=== PATIENT | female | born 1945 | race Caucasian/White ===

== ENCOUNTER 2016-03-27 08:20 | Emergency (ER) | payer MEDICARE, OTHER ==
[~2016-03-27] VITALS: Ht 160 cm; Wt 72.6 kg
[~2016-03-27 08:20] MED LIST: ASP81TEC PO; ATOR40TA PO; CAL PO; CALCIUM; FEXO1TAB PO; MAG; MAG PO; OMEG1CAP24 PO; VITAMINE C PO; VITD PO; ZINC; ZINC PO; [UNRECOGNIZED DRUG - OTHER]; [UNRECOGNIZED DRUG - OTHER] PO; vitamine D PO
[2016-03-27] MEDS ORDERED: OMEP20CA12 (08:56)
[2016-03-27] MEDS ORDERED: MONT10TA24 (08:56)
[2016-03-27] MEDS ORDERED: LISI-556 (08:56)
--- NOTE | 2016-03-27 09:03 | ED Fall/Injury ---
General Chief Complaint: Trauma-Non Activation Stated Complaint: FALL/FACIAL LAC Nursing Triage Note: FALL AT HOME, SEE TRAUMA ASSESSMENT Source: patient Exam Limitations: no limitations History of Present Illness Time seen by provider: 08:59 Initial Comments 71 yowf fell last nit p hot bath at home striking rt forehead. She has done this before where she gets out of hot tub and feels weak and will fall. May have had syncopal episode. No neck pain, paraesthesias, or weakness. No chest pain, fever, chill, SOB, N or V. PMH hypertension asthma and elevated cholesterol. Location Injury Occurred: AT HOME Allergies and Home Medications Allergies Uncoded Allergies: PCN (Allergy, Unknown, RASH, 09/11/10) Home Medications 1 PO DAILY (Reported) 1 PO (Reported) 1 PO DAILY (Reported) 1 PO DAILY (Reported) Aspirin 81 Mg Tabec 81 MG PO DAILY (Reported) Atorvastatin Calcium 40 Mg Tablet 1 EACH PO DAILY (Reported) Fexofenadine/Pseudoephedrine 1 Each Tab.er.24h 1 EACH PO PRN (Reported) Lisinopril 5 Mg Tablet #90 (Reported) Montelukast Sodium 10 Mg Tablet #90 (Reported) [place]-3 Fatty Acids/Fish Oil 1 Each Capsule.dr 1 EACH PO (Reported) Omeprazole 20 Mg Capsule.dr #90 (Reported) Constitutional: No chills, No fever, weakness Eyes: Denies Blurred Vision Ears, Nose, Mouth, Throat: denies ear pain Respiratory: No cough Cardiovascular: No chest pain Gastrointestinal: No abdominal pain, No diarrhea, No nausea Genitourinary: no symptoms reported Musculoskeletal: no symptoms reported Skin: see HPI other (there is a 5 cm stellate laceration in the medial aspect of the right eyebrow.) Psychiatric/Neurological: No Symptoms Reported Past Ihubpaq-Wlmkdd-Syletx Hx Patient Social History Alcohol Use: Denies Use Recreational Drug Use: No Smoking Status: Never a Smoker Recent Foreign Travel: No Contact w/Someone Who Travel: No Recent Infectious Disease Expo: No Recent Hopitalizations: No Immunizations Up To Date Date of Influenza Vaccine: Nov 30, 2011 Surgeries HX Surgeries: Yes Surgeries: Adenoidectomy, Hysterectomy, Tonsillectomy Respiratory Hx Respiratory Disorders: No Cardiovascular Hx Cardiac Disorders: Yes Cardiac Disorders: High Cholesterol, Hypertension Neurological Hx Neurological Disorders: No Reproductive System Hx Reproductive Disorders: No Genitourinary Hx Genitourinary Disorders: No Gastrointestinal Hx Gastrointestinal Disorders: No Musculoskeletal Hx Musculoskeletal Disorders: No Endocrine Hx Endocrine Disorders: No HEENT HX ENT Disorders: No Cancer Hx Cancer: No Psychosocial Hx Psychiatric Problems: No Reviewed Nursing Assessment Reviewed/Agree w Nursing PMH: Yes Physical Exam Vital Signs Vital Sign - Last 12Hours 03/27/16 08:43 Temp 98.3 Pulse 80 Resp 18 B/P 148/73 Pulse Ox 95 O2 Delivery Room Air Capillary Refill : Less Than 3 Seconds General Appearance: WD/WN no apparent distress HEENT: other Neck: supple Cardiovascular: regular rate, rhythm Respiratory: lungs clear Gastrointestinal: normal bowel sounds non tender soft Back: normal inspection Extremities: normal range of motion non-tender Neurologic/Psychiatric: no motor/sensory deficits alert normal mood/affect Skin: other (there is a 5 cm stellate laceration medial third of the right eyebrow.) Progress/Results/Core Measures Results/Orders Lab Results Laboratory Tests Test 03/27/16 09:23 Range/Units Alanine Aminotransferase (ALT/SGPT) 20 0-55 U/L Albumin 4.1 3.2-4.5 G/DL Alkaline Phosphatase 67 40-136 U/L Anion Gap 12 5-14 MMOL/L Aspartate Amino Transf (AST/SGOT) 17 5-34 U/L BUN/Creatinine Ratio 17 Basophils # (Auto) 0.0 0.0-0.1 10^3/uL Basophils (%) (Auto) 0 0-10 % Blood Urea Nitrogen 14 7-18 MG/DL Calcium Level 9.2 8.5-10.1 MG/DL Carbon Dioxide Level 23 21-32 MMOL/L Chloride Level 108 H 98-107 MMOL/L Creatinine 0.84 0.60-1.30 MG/DL Eosinophils # (Auto) 0.1 0.0-0.3 10^3/uL Eosinophils (%) (Auto) 1 0-10 % Estimat Glomerular Filtration Rate > 60 Glucose Level 91 70-105 MG/DL Hematocrit 38 35-52 % Hemoglobin 12.8 11.5-16.0 G/DL Lymphocytes # (Auto) 2.3 1.0-4.0 X 10^3 Lymphocytes (%) (Auto) 32 12-44 % Mean Corpuscular Hemoglobin 31 25-34 PG Mean Corpuscular Hemoglobin Concent 34 32-36 G/DL Mean Corpuscular Volume 90 80-99 FL Mean Platelet Volume 10.3 7.4-10.4 FL Monocytes # (Auto) 0.5 0.0-1.0 X 10^3 Monocytes (%) (Auto) 8 0-12 % Neutrophils # (Auto) 4.2 1.8-7.8 X 10^3 Neutrophils (%) (Auto) 59 42-75 % Platelet Count 257 130-400 10^3/uL Potassium Level 3.9 3.6-5.0 MMOL/L Red Blood Count 4.20 L 4.35-5.85 10^6/uL Red Cell Distribution Width 13.6 10.0-14.5 % Sodium Level 143 135-145 MMOL/L Total Bilirubin 0.6 0.1-1.0 MG/DL Total Protein 6.5 6.4-8.2 G/DL Troponin I < 0.30 <0.30 NG/ML White Blood Count 7.1 4.3-11.0 10^3/uL My Orders Orders-ISABEL HUNT MD Ct Head Wo (03/27/16 08:57) Cbc With Automated Diff (03/27/16 08:57) Comprehensive Metabolic Panel (03/27/16 08:57) Ekg Tracing (03/27/16 08:57) Troponin I (03/27/16 08:57) Ua Culture If Indicated (03/27/16 08:57) Chest 1 View, Ap/Pa Only (03/27/16 08:57) Dipht,Pertuss(Acell),Tet Adult (Boostrix (03/27/16 11:00) Dipht,Pertuss(Acell),Tet Adult (Boostrix (03/27/16 10:53) Vital Signs/I&O Vital Sign - Last 12Hours 03/27/16 08:43 Temp 98.3 Pulse 80 Resp 18 B/P 148/73 Pulse Ox 95 O2 Delivery Room Air Blood Pressure Mean: 98 Progress Note : Time: 11:06 Progress Note Patient's laboratory evaluation, CT of the head, an EKG failed to demonstrate evidence of acute pathology. Under usual sterile conditions using 1 percent plain lidocaine for local anesthesia the laceration was copiously cleaned and irrigated and repaired in an interrupted fashion applying 6-0 nylon. Approximately 6 interrupted sutures were used for closure. Departure Impression Impression: Primary Impression: Syncopal episodes Qualified Code: R55 - Syncope and collapse Additional Impressions: Closed head injury Qualified Code: S09.90XA - Unspecified injury of head, initial encounter Forehead laceration Qualified Code: S01.81XA - Laceration without foreign body of other part of head, initial encounter Disposition: 01 HOME, SELF-CARE Condition: Improved Departure-Patient Inst. Decision time for Depature: 11:08 Referrals: CHENTE ARAIZA MD (PCP/Family) Primary Care Physician Patient Instructions: Syncope (Fainting) (DC) Add. Discharge Instructions: Sutures out in approximately 5 days. Watch for signs of infection. Follow head injury instructions. Return if any problems or questions. Tylenol and/or ibuprofen for pain. All discharge instructions reviewed with patient and/or family. Voiced understanding. ISABEL HUNT MD Mar 27, 2016 09:03
[2016-03-27 09:29] LABS: BASOPHILS % (AUTO) 0 % (0-10); EOSINOPHILS # (AUTO) 0.1 10^3/uL (0.0-0.3); EOSINOPHILS % (AUTO) 1 % (0-10); LYMPHOCYTES # (AUTO) 2.3 X 10^3 (1.0-4.0); LYMPHOCYTES % (AUTO) 32 % (12-44); MEAN CORPUSCULAR HEMOGLOBIN 31 PG (25-34); MEAN CORPUSCULAR HGB CONC 34 G/DL (32-36); MEAN CORPUSCULAR VOLUME 90 FL (80-99); MEAN PLATELET VOLUME 10.3 FL (7.4-10.4); MONOCYTES # (AUTO) 0.5 X 10^3 (0.0-1.0); MONOCYTES % (AUTO) 8 % (0-12); NEUTROPHILS # (AUTO) 4.2 X 10^3 (1.8-7.8); NEUTROPHILS % (AUTO) 59 % (42-75); PLATELET COUNT 257 10^3/uL (130-400); RED CELL DISTRIBUTION WIDTH 13.6 % (10.0-14.5); WHITE BLOOD COUNT 7.1 10^3/uL (4.3-11.0)
--- NOTE | 2016-03-27 09:42 | Diagnostic Imaging Report ---
CLINICAL INDICATION: Patient fell at home. Patient has swelling and bruising above the right orbital rim. EXAM: Axial CT scan of the brain performed without IV contrast. COMPARISON: None. FINDINGS: There is no evidence of acute cerebral infarct, intracranial hemorrhage, or gross mass effect. There is normal brink-white matter distinction. The brain parenchymal volume appears appropriate for patient's age. There is no significant midline shift or herniation. There is no evidence of hydrocephalus. The basal cisterns are unremarkable. There is a minimal area of extracranial soft tissue swelling in the right frontal/superior periorbital region. There is no skull fracture. Otherwise, the skull, extracranial soft tissue, and orbits are unremarkable. The paranasal sinuses are unremarkable. IMPRESSION: 1: There is no evidence of acute intracranial process. 2: Minimal-sized area of extracranial soft tissue swelling in the right frontal/superior periorbital region. There is no skull fracture. Dictated by: Dictated on workstation # [id number]
--- NOTE | 2016-03-27 09:47 | Diagnostic Imaging Report ---
Clinical indication: Patient fell at home. Exam: Portable chest x-ray upright view. Comparisons: Chest x-ray dated 08/18/2010. Findings: Lungs/pleura: Lungs are clear. There is no pneumothorax. There is no pleural effusion. Mediastinum: Unremarkable. Pulmonary vasculature: Unremarkable. Heart: Unremarkable. Bones/extrathoracic soft tissue: Unremarkable. Impression: There is no radiographic evidence of acute cardiopulmonary process. Dictated by: Dictated on workstation # [id number]
[2016-03-27 09:49] LABS: ALANINE AMINOTRANSFERASE 20 U/L (0-55); ALBUMIN 4.1 G/DL (3.2-4.5); ANION GAP 12 MMOL/L (5-14); ASPARTATE AMINO TRANSFERASE 17 U/L (5-34); BILIRUBIN,TOTAL 0.6 MG/DL (0.1-1.0); BLOOD UREA NITROGEN 14 MG/DL (7-18); BUN/CREATININE RATIO 17; CALCIUM 9.2 MG/DL (8.5-10.1); CARBON DIOXIDE 23 MMOL/L (21-32); CHLORIDE 108 MMOL/L (98-107); CREATININE SERUM 0.84 MG/DL (0.60-1.30); GFR ESTIMATED > 60; GLUCOSE 91 MG/DL (70-105); POTASSIUM 3.9 MMOL/L (3.6-5.0); SODIUM 143 MMOL/L (135-145); TOTAL PROTEIN 6.5 G/DL (6.4-8.2)
[2016-03-27 09:55] LABS: TROPONIN I < 0.30 NG/ML (<0.30)
[2016-03-27] MEDS ORDERED: TETANUS,DIPTH,PERTUSS P/F (BOOSTRIX) 0.5 ML VIAL IM ONE ×2 (10:53→11:00)
[2016-03-27 11:12] VITALS: BP 131/77
== END 2016-03-27 11:12 | disposition home or self-care (01) ==
LOC: EDUNIT# 08:20 → ER 08:21
DX: S01.81XA Laceration without foreign body of other part of head, initial encounter (principal); R55 Syncope and collapse; Z23 Encounter for immunization; I10 Essential (primary) hypertension; Z79.899 Other long term (current) drug therapy; Z79.82 Long term (current) use of aspirin; W16.212A Fall in (into) filled bathtub causing other injury, initial encounter; Y92.012 Bathroom of single-family (private) house as the place of occurrence of the external cause; Y93.E1 Activity, personal bathing and showering; Y99.8 Other external cause status
CPT/HCPCS: 36415; 70450; 71010; 80053; 84484; 85027; 90471; 90715; 93005

== ENCOUNTER 2016-04-01 07:47 | Emergency (ER) | payer MEDICARE, OTHER ==
[~2016-04-01] VITALS: Ht 160 cm; Wt 79.4 kg
--- OUTSIDE RECORDS SUMMARY | 2016-04-01 07:55 | XMS REPORT | Continuity of Care Document ---
Author Author [facility] Organization [facility] Address Unknown Phone Unavailable Care Team Providers Care Handkerchief Sample Clerk Name Role Phone CHENTE ARAIZA MD PCP Insurance Providers Payer Name Policy Number Subscriber Name Relationship [employer] Gold Choice [id number] Cristina Mcmahon 20 Self / Same As Patient Advance Directives Directive Response Recorded Date/Time Advance Directives No 03/27/16 8:43am Health Care Power of Ultrasound Technologist No 03/27/16 8:43am Organ Donor Yes 03/27/16 8:43am Resuscitation Status Full Code 03/27/16 8:43am Chief Complaint and Reason for Visit Chief Complaint Trauma-Non Activation Reason for Visit [id number] Closed head injury Syncopal episodes Problems Active Problems Medical Problem Onset Date Status Closed head injury Unknown Acute Forehead laceration Unknown Acute Syncopal episodes Unknown Acute Medications Current Home Medications Medication Dose Units Route Directions Days/Qty Instructions Start Date Aspirin 81 Mg 81 Mg Oral Daily 10/02/12 Atorvastatin Calcium 40 Mg 1 Each Oral Daily 10/02/12 [place]-3 Fatty Acids/Fish Oil 1 Each 1 Each [...] - 99.5) 03/27/2016 8:43am Temperature (Calculated Celsius) 36.24926 degrees C (36.4 - 37.5) 03/27/2016 8:43am [...] 3 inches 03/27/2016 8:43am Height (Calculated Centimeters) 160.858160 cm 03/27/2016 8:43am Weight (Pounds) 160 pounds 03/27/2016 8:43am Weight (Calculated Kilograms) 72.604861 kilograms 03/27/2016 8:43am Capillary Refill Capillary Refill [...] Date Attending Provider Departed Emergency Room [facility] 03/27/16 8:21am 03/27 11:12am ISABEL HUNT MD Recent Diagnosis
[2016-04-01 08:12] VITALS: BP 122/74
== END 2016-04-01 08:12 | disposition home or self-care (01) ==
LOC: EDUNIT# 07:47 → ER 07:50
DX: S01.81XD Laceration without foreign body of other part of head, subsequent encounter (principal)

== ENCOUNTER → 2016-04-01 | Outpatient (CLI) | payer MEDICARE, OTHER ==
[~2016-04-01] MED LIST changes: +LISI-556; +MONT10TA24; +OMEP20CA12
--- OUTSIDE RECORDS SUMMARY | 2016-04-01 07:27 | XMS REPORT | Continuity of Care Document ---
Author Author [facility] Organization [facility] Address Unknown Phone Unavailable Care Team Providers Care Supervisor Carbon [employer] Name Role Phone CHENTE ARAIZA MD PCP Insurance Providers Payer Name Policy Number Subscriber Name Relationship [employer] Gold Choice [id number] Cristina Mcmahon 20 Self / Same As Patient Advance Directives Directive Response Recorded Date/Time Advance Directives No 03/27/16 8:43am Health Care Power of Er Medical Technician No 03/27/16 8:43am Organ Donor Yes 03/27/16 8:43am Resuscitation Status Full Code 03/27/16 8:43am Chief Complaint and Reason for Visit Chief Complaint Trauma-Non Activation Reason for Visit [id number] Closed head injury Syncopal episodes Problems Active Problems Medical Problem Onset Date Status Closed head injury Unknown Acute Forehead laceration Unknown Acute Syncopal episodes Unknown Acute Medications Current Home Medications Medication Dose Units Route Directions Days/Qty Instructions Start Date Aspirin 81 Mg 81 Mg Oral Daily 10/02/12 Atorvastatin Calcium 40 Mg 1 Each Oral Daily 10/02/12 [place]-3 Fatty Acids/Fish Oil 1 Each 1 Each Oral 10/02/12 [Leonel/Mag/Zinc/Vitd] 1 Oral Daily 10/02/12 [Vitamine C] 1 Oral 10/02/12 [Vitamine D] 1 Oral Daily 10/02/12 Fexofenadine/Pseudoephedrine 1 Each 1 Each Oral As Needed 10/02/12 [Vitamine E] 1 Oral Daily 10/02/12 Montelukast Sodium 10 Mg 90 02/04/17 Lisinopril 5 Mg 90 03/27/16 Omeprazole 20 Mg 90 03/27/16 Past Home Medications Medication Directions Ordered Status [Calcium/Mag/Zinc/Vd] , 10/02/12 Discontinued Social History Social History Problem Response Recorded Date/Time Alcohol Use Denies Use 03/27/2016 8:43am Recreational Drug Use No 03/27/2016 8:43am Recent Foreign Travel No 03/27/2016 8:43am Recent Infectious Disease Exposure No 03/27/2016 8:43am Hospitalization with Isolation Denies 03/27/2016 8:43am Smoking Status Never a Smoker 03/27/2016 8:43am Recent Hopitalizations No 03/27/2016 8:43am Hospitalization with Isolation Denies 03/27/2016 8:43am Query Response Start Date Stop Date Smoking Status Never a Smoker Hospital Discharge Instructions No hospital discharge instructions. Plan of Care Discharge Date 03/27/16 11:12am Disposition 01 HOME, SELF-CARE Condition at Discharge Improved Instructions/Education Provided Syncope (Fainting) (DC) Prescriptions See Medication Section Referrals CHENTE ARAIZA MD - Primary Care Physician Additional Instructions/Education Sutures out in approximately 5 days. Watch for signs of infection. Follow head injury instructions. Return if any problems or questions. Tylenol and/or ibuprofen for pain. All discharge instructions reviewed with patient and/or family. Voiced understanding. Functional Status No functional status results. Allergies, Adverse Reactions, Alerts Allergen Type Severity Reaction Status Last Updated PCN Allergy Unknown RASH Active 09/11/10 Immunizations Name Given Type DTaP-Tetanus, Dipth, Pertuss P/F (Boostrix) 03/27/16 Administered Vital Signs Acute Vital Signs Vital Response Date/Time Temperature (Fahrenheit) 98.3 degrees F (97.6 - 99.5) 03/27/2016 8:43am Temperature (Calculated Celsius) 36.72584 degrees C (36.4 - 37.5) 03/27/2016 8:43am Temperature Source Tympanic 03/27/2016 8:43am Pulse Rate (adult) 65 bpm (60 - 90) 03/27/2016 11:12am Respiratory Rate 20 bpm (12 - 24) 03/27/2016 11:12am O2 Sat by Pulse Oximetry 99 % (88 - 100) 03/27/2016 11:12am Blood Pressure 131/77 mm Hg 03/27/2016 11:12am Blood Pressure Mean 98 mm Hg 03/27/2016 8:43am Pain Numeric Pain Scale 0-No Pain 03/27/2016 11:12am Height (Feet) 5 feet 03/27/2016 8:43am Height (Inches) 3 inches 03/27/2016 8:43am Height (Calculated Centimeters) 160.296184 cm 03/27/2016 8:43am Weight (Pounds) 160 pounds 03/27/2016 8:43am Weight (Calculated Kilograms) 72.444421 kilograms 03/27/2016 8:43am Capillary Refill Capillary Refill Less Than 3 Seconds 03/27/2016 8:43am Height 5 ft 3 in Weight 160 lb Body Mass Index 28.3 kg/m^2 Results Laboratory Results Test Name Result Units Flags Reference Collection Date/Time Result Date/ Time Comments White Blood Count 7.1 10^3/uL 4.3-11.0 03/27/2016 9:23am 03/27/2016 9: 31am Red Blood Count 4.20 10^6/uL L 4.35-5.85 03/27/2016 9:03/27/2016 9: 31am Hemoglobin 12.8 G/DL 11.5-16.0 03/27/2016 9:03/27/2016 9:31am Hematocrit 38 % 35-52 03/27/2016 9:03/27/2016 9:31am Mean Corpuscular Volume 90 FL 80-99 03/27/2016 9:03/27/2016 9: 31am Mean Corpuscular Hemoglobin 31 PG 25-34 03/27/2016 9:03/27/2016 9: 31am Mean Corpuscular Hemoglobin Concent 34 G/DL 32-36 03/27/2016 9:05/2016 9:31am Red Cell Distribution Width 13.6 % 10.0-14.5 03/27/2016 9:2016 9:31am Platelet Count 257 10^3/uL 130-400 03/27/2016 9:03/27/2016 9:31am Mean Platelet Volume 10.3 FL 7.4-10.4 03/27/2016 9:03/27/2016 9: 31am Neutrophils (%) (Auto) 59 % 42-75 03/27/2016 9:03/27/2016 9:31am Lymphocytes (%) (Auto) 32 % 12-44 03/27/2016 9:03/27/2016 9:31am Monocytes (%) (Auto) 8 % 0-12 03/27/2016 9:03/27/2016 9:31am Eosinophils (%) (Auto) 1 % 0-10 03/27/2016 9:03/27/2016 9:31am Basophils (%) (Auto) 0 % 0-10 03/27/2016 9:03/27/2016 9:31am Neutrophils # (Auto) 4.2 X 10^3 1.8-7.8 03/27/2016 9:03/27/2016 9: 31am Lymphocytes # (Auto) 2.3 X 10^3 1.0-4.0 03/27/2016 9:03/27/2016 9: 31am Monocytes # (Auto) 0.5 X 10^3 0.0-1.0 03/27/2016 9:03/27/2016 9: 31am Eosinophils # (Auto) 0.1 10^3/uL 0.0-0.3 03/27/2016 9:03/27/2016 9 :31am Basophils # (Auto) 0.0 10^3/uL 0.0-0.1 03/27/2016 9:03/27/2016 9: 31am Sodium Level 143 MMOL/L 135-145 03/27/2016 9:03/27/2016 9:50am Potassium Level 3.9 MMOL/L 3.6-5.0 03/27/2016 9:03/27/2016 9:50am Chloride Level 108 MMOL/L H 98-107 03/27/2016 9:03/27/2016 9:50am Carbon Dioxide Level 23 MMOL/L 21-32 03/27/2016 9:03/27/2016 9: 50am Anion Gap 12 MMOL/L 5-14 03/27/2016 9:03/27/2016 9:50am Blood Urea Nitrogen 14 MG/DL 7-18 03/27/2016 9:03/27/2016 9:50am Creatinine 0.84 MG/DL 0.60-1.30 03/27/2016 9:03/27/2016 9:50am BUN/Creatinine Ratio 17 03/27/2016 9:03/27/2016 9:50am Estimat Glomerular Filtration Rate > 60 03/27/2016 9:2016 9:50am GFR INTERPRETIVE DATA UNITS FOR ESTIMATED GFR (eGFR): mL/min/1.73 M2 REFERENCE RANGE FOR ESTIMATED GFR (eGFR) eGFR NORMAL eGFR >60 MODERATELY DECREASED eGFR 30-59 SEVERLY DECREASED eGFR 15-29 KIDNEY FAILURE <15 (OR DIALYSIS) Glucose Level 91 MG/DL 70-105 03/27/2016 9:03/27/2016 9:50am Calcium Level 9.2 MG/DL 8.5-10.1 03/27/2016 9:03/27/2016 9:50am Total Bilirubin 0.6 MG/DL 0.1-1.0 03/27/2016 9:03/27/2016 9:50am Alkaline Phosphatase 67 U/L 40-136 03/27/2016 9:03/27/2016 9:50am Aspartate Amino Transf (AST/SGOT) 17 U/L 5-34 03/27/2016 9:2016 9:50am Alanine Aminotransferase (ALT/SGPT) 20 U/L 0-55 03/27/2016 9:03/27 9:50am Troponin I < 0.30 NG/ML <0.30 03/27/2016 9:03/27/2016 9:58am Total Protein 6.5 G/DL 6.4-8.2 03/27/2016 9:03/27/2016 9:50am Albumin 4.1 G/DL 3.2-4.5 03/27/2016 9:03/27/2016 9:50am Procedures Procedure Status Date Provider(s) Tracing only of electrocardiogram Active 03/27/16 ISABEL HUNT MD Encounters Encounter Location Arrival/Admit Date Discharge/Depart Date Attending Provider Departed Emergency Room [facility] 03/27/16 8:21am 03/27 11:12am ISABEL HUNT MD Recent Diagnosis
--- NOTE | 2016-04-01 18:59 | Diagnostic Imaging Report ---
Bilateral screening mammogram The current study was also evaluated with a Computer Aided Detection (CAD) system. INDICATION: Screening. No current complaints stated on the questionnaire. COMPARISON: 03/21/15 FINDINGS: The breasts are composed of scattered fibroglandular densities. There is no mass, architectural distortion or suspicious cluster of calcification. Allowing for technique and positional differences, no suspicious change is seen. IMPRESSION: No significant change. ACR BI-RADS Category 2: Benign findings. Result letter will be mailed to the patient. Note: At least 10% of breast cancer is not imaged by mammography. Dictated by: Dictated on workstation # [id number]
== END ==
LOC: RAD 07:24
PROVIDERS: ATTEND Nurse Practitioner Family
DX: Z12.31 Encounter for screening mammogram for malignant neoplasm of breast (principal)
CPT/HCPCS: 77067

== ENCOUNTER 2016-08-05 06:12 | Outpatient (CLI) | payer MEDICARE, OTHER ==
[~2016-08-05] VITALS: Ht 160 cm; Wt 79.4 kg
== END 2016-08-05 15:37 ==
LOC: PREOP 06:12
PROVIDERS: ATTEND Surgery
DX: Z01.818 Encounter for other preprocedural examination (principal); Z12.11 Encounter for screening for malignant neoplasm of colon

== ENCOUNTER 2016-08-09 07:45 | Day surgery (SDC) | payer MEDICARE, OTHER ==
[~2016-08-09] VITALS: Ht 160 cm; Wt 79.4 kg
[~2016-08-09 07:45] MED LIST changes: -LISI-556; +LISI-556 PO; -MONT10TA24; +MONT10TA24 PO
[2016-08-09] MEDS ORDERED: CHOL200059 PO (07:57)
[2016-08-09] MEDS ORDERED: ZINC50TA4 PO (07:57)
[2016-08-09] MEDS ORDERED: ASCO10006 PO (07:57)
[2016-08-09] MEDS ORDERED: NS IV 500 ML 500 ML IV ONE (08:00)
[2016-08-09] MEDS ORDERED: NALOXONE 0.4 MG/ML 1 ML (NARCAN) VIAL IVP PRN (08:00)
[2016-08-09] MEDS ORDERED: FLUMAZENIL (ROMAZICON) 0.1 MG/ML 5 ML VIAL INJ PRN (08:00)
[2016-08-09] MEDS ORDERED: NS IV 500 ML 500 ML ONE (08:04)
[2016-08-09 08:05] VITALS: BP 121/63
[2016-08-09] MEDS ORDERED: CALC-694 PO (08:23)
[2016-08-09] MEDS ORDERED: MINE15DR4 OU (08:23)
[2016-08-09] MEDS ORDERED: CETI10TA9 PO (08:23)
[2016-08-09] MEDS ORDERED: BIOT5000 PO (08:23)
[2016-08-09] MEDS ORDERED: OMEG-109 PO (08:23)
[2016-08-09] MEDS ORDERED: LIFI1DRO OU (08:23)
--- NOTE | 2016-08-09 09:22 | Conscious Sedation/ASA ---
Conscious Sedation Pre-Proced Time Reviewed: 09:01 ASA Class: 2 Airway Mallampati Classification: ([place] appropriate class) I. II. III, IV Lungs Heart ASA score ASA 1: a normal healthy patient ASA 2: a patient with a mild systemic disease (mid diabetes, controlled hypertension, obesity ASA 3: a patient with a severe systemic disease that limits activity (angina , COPD, prior Myocardial infarction) ASA 4: a patient with an incapacitating disease that is a constant threat to life (CHF, renal failure) ASA 5: a moribund patient not expected to survive 24 hrs. (ruptured aneurysm) ASA 6: a declared brain patient whose organs are being harvested. For emergent operations, add the letter E after the classification Grade 1 Sedation Plan: Discussed options with patient/fam Note The patient is an appropriate candidate to undergo the planned procedure, sedation, and anesthesia. The patient immediately re-assessed prior to indication. PALLAVI HAHN MD Aug 09, 2016 9:22 am
[2016-08-09] MEDS ORDERED: MIDAZOLAM 2 MG/2 ML (VERSED) VIAL ONE ×4 (09:29→09:46)
[2016-08-09] MEDS ORDERED: fentaNYL INJECTION 100 MCG/2 ML AMP ONE (09:29)
[2016-08-09] MEDS: fentaNYL INJECTION 100 MCG/2 ML AMP IVP PRN ×2 (09:40→09:43)
[2016-08-09] MEDS: MIDAZOLAM 2 MG/2 ML (VERSED) VIAL IVP PRN ×3 (09:41→09:48)
--- NOTE | 2016-08-09 10:12 | Endoscopy Procedure Report ---
Endoscopy Report Date: Aug 09, 2016 Preoperative Diagnosis: screening. Family history Study Performed: Colonoscopy Procedure Instrument: Colonoscope Endo Procedure/Findings Findings 1.: Diverticulosis Recommendations: Recommendations: 1.: Colonscopy in 5 years Copy Copies To 1: CHENTE ARAIZA MD, XAVIER M MD Aug 09, 2016 10:12 am
--- NOTE | 2016-08-09 10:13 | Discharge Inst-Simple/Standard ---
Discharge Inst-Standard Discharge Medications New, Converted or Re-Newed RX: Other Patient Instructions/Follow Up Plan of Care/Instructions/FU: repeat colonoscopy in 5 years Activity as Tolerated: Yes Discharge Diet: No Restrictions PALLAVI HAHN MD Aug 09, 2016 10:13 am
[2016-08-09 10:25] VITALS: BP 126/68
--- NOTE | 2016-08-09 10:50 | OPERATIVE REPORT ---
DATE OF SERVICE: 08/09/2016 PROCEDURE: Screening colonoscopy. SURGEON: Pallavi Hahn MD INDICATION FOR PROCEDURE: This lady came in for screening colonoscopy. She reported a family history of colon cancer. Informed consent was obtained after reviewing the procedure in detail. DESCRIPTION OF PROCEDURE: She was placed in left lateral decubitus position and her vital signs were monitored. Conscious sedation was achieved using Versed and fentanyl. Digital rectal examination was unremarkable. The colonoscope was then introduced into the rectum and advanced to the cecum. The scope was then withdrawn slowly and the mucosa examined in a systematic fashion. FINDINGS: Very few, scattered sigmoid diverticula. No polyps were found. She tolerated the procedure well and was taken back to the nursing area in a stable condition. IMPRESSION: Screening colonoscopy. No polyps. Positive family history. Recommend repeating in 5 years. Job ID: [id number] DocumentID: [id number] Dictated Date: 08/09/2016 10:08:22 Aquatic Director Date: 08/09/2016 10:50:10 Dictated By: PALLAVI HAHN MD MTDD
[2016-08-09 10:55] VITALS: BP 116/69
== END 2016-08-09 11:10 | disposition home or self-care (01) ==
LOC: ENDO 07:45
PROVIDERS: ATTEND Surgery
DX: Z12.11 Encounter for screening for malignant neoplasm of colon (principal); Z80.0 Family history of malignant neoplasm of digestive organs; K57.30 Diverticulosis of large intestine without perforation or abscess without bleeding; I10 Essential (primary) hypertension; E78.5 Hyperlipidemia, unspecified; Z79.899 Other long term (current) drug therapy

== ENCOUNTER → 2017-04-26 | Outpatient (CLI) | payer MEDICARE, OTHER ==
[~2017-04-26] MED LIST changes: +ASCO10006 PO; +BIOT5000 PO; +CALC-694 PO; +CETI10TA9 PO; +CHOL200059 PO; +LIFI1DRO OU; +MINE15DR4 OU; +OMEG-109 PO; +ZINC50TA4 PO
--- NOTE | 2017-04-26 12:15 | Diagnostic Imaging Report ---
INDICATION: Routine screening. The current study was also evaluated with a Computer Aided Detection (CAD) system. Comparison is made with prior studies from 04/01/2016 and 03/21/2015. FINDINGS: Both breasts are primarily involutional. Nodular density in the right breast lateral to the nipple line on the CC view is stable and consistent with benign etiology. No new mass or malignant-appearing microcalcifications are seen. The axillae are unremarkable. IMPRESSION: No mammographic features suspicious for malignancy are identified. ACR BI-RADS Category 2: Benign findings. Result letter will be mailed to the patient. Note: At least 10% of breast cancer is not imaged by mammography. Dictated by: Dictated on workstation # [id number]
== END ==
LOC: RAD 07:57
PROVIDERS: ATTEND Nurse Practitioner Family
DX: Z12.31 Encounter for screening mammogram for malignant neoplasm of breast (principal)
CPT/HCPCS: 77067

== ENCOUNTER → 2018-04-28 | Outpatient (CLI) | payer MEDICARE ==
--- NOTE | 2018-04-28 08:59 | Diagnostic Imaging Report ---
Indication: Routine screening. Comparison is made with prior mammogram from 04/26/2017 and 04/01/2016. 2-D and 3-D bilateral screening mammography was performed with CAD. Scattered fibroglandular densities are identified bilaterally. The parenchymal pattern is stable. No spiculated mass or malignant-appearing mitral calcifications are seen. There are benign calcifications. The axillae are unremarkable. Impression: BI-RADS category 2 No mammographic features suspicious for malignancy are identified. Dictated by: Dictated on workstation # [id number]
== END ==
LOC: RAD 07:20
PROVIDERS: ATTEND Nurse Practitioner Family
DX: Z12.31 Encounter for screening mammogram for malignant neoplasm of breast (principal)
CPT/HCPCS: 77067

== ENCOUNTER 2018-08-16 22:02 | Emergency (ER) | payer MEDICARE, OTHER ==
[~2018-08-16] VITALS: Ht 160 cm; Wt 79.4 kg
[2018-08-16] MEDS ORDERED: NITROGLYCERIN 0.4 MG SL TABS BTL 25'S SL ONE (22:15)
[2018-08-16] MEDS ORDERED: ASPIRIN 81 MG CHEW (CHILDREN'S ASA) PO ONE (22:15)
[2018-08-16] MEDS ORDERED: NS IV 1000 ML 1,000 ML ONE (22:15)
[2018-08-16] MEDS ORDERED: NS IV 1000 ML 1,000 ML IV ONE (22:18)
--- NOTE | 2018-08-16 22:26 | ED Chest Pain ---
General Chief Complaint: Chest Pain Stated Complaint: CHEST PAIN Nursing Triage Note: pt verbalized chest discomfort that began 2 hours ago that she decribed as a racing feeling with chest heaviness. pt verbalized that her chest discomfort is absent upon presentation to the ed, states her head feels off. pt denies nausea, sob or pain that increases with exertion. Nursing Sepsis Screen: No Definite Risk Source: patient Exam Limitations: no limitations History of Present Illness Date Seen by Provider: Aug 16, 2018 Time Seen by Provider: 22:06 Initial Comments This 73-year-old woman presents to the emergency room with complaints of chest heaviness since around 20:00. She was driving back from a [employer] in [place] when the pain started. She denies any other significant sym ptoms such as shortness of breath or dizziness. She did feel "warm" for a period of time while driving home but did not have fever. She had a brief episode of nausea when she returned home but that has now passed. She rates her pain as a 1 or 2 on the pain scale now. It was 8 or 9 at its worst. She is on her fourth dose of prednisone as prescribed by board certified behavioral analyst for her periorbital erythema. Patient can monitor her pulse on her watch. She noted at one point her heart rate was up to 210 according to the watch. She has mild sinus tachycardia at present. Allergies and Home Medications Allergies Uncoded Allergies: PCN (Allergy, Unknown, RASH, 09/11/10) Home Medications Ascorbic Acid 1,000 Mg Tablet, 1,000 MG PO DAILY, (Reported) Aspirin 81 Mg Tabec, 81 MG PO DAILY, (Reported) Atorvastatin Calcium 40 Mg Tablet, 40 MG PO DAILY, (Reported) Biotin 5,000 Mcg Tab.rapdis, 5,000 MCG PO DAILY, (Reported) Calcium Carbonate/Vitamin D3 1 Each Tablet, 1 EACH PO DAILY, (Reported) Cetirizine HCl 10 Mg Tablet, 10 MG PO DAILY, (Reported) Cholecalciferol (Vitamin D3) 2,000 Unit Tablet, 2,000 UNIT PO BID, (Reported) Lifitegrast 1 Each Droperette, 1 DROP OU BID, (Reported) Lisinopril 5 Mg Tablet, 5 MG PO DAILY, (Reported) Mineral Oil, Light/Mineral Oil 15 Ml Drops, 1 DROP OU BID, (Reported) Montelukast Sodium 10 Mg Tablet, 10 MG PO HS, (Reported) Alamo-3 Fatty Acids/Fish Oil 1 Each Capsule, 1,200 MG PO BID, (Reported) Zinc Gluconate 50 Mg Tablet, 50 MG PO DAILY, (Reported) Patient Home Medication List Home Medication List Reviewed: Yes Review of Systems Review of Systems Constitutional: no symptoms reported EENTM: No Symptoms Reported Respiratory: No Symptoms Reported Cardiovascular: See HPI Gastrointestinal: See HPI Genitourinary: No Symptoms Reported Musculoskeletal: no symptoms reported Skin: no symptoms reported Psychiatric/Neurological: No Symptoms Reported Endocrine: No Symptoms Reported Hematologic/Lymphatic: No Symptoms Reported Past Wlgmusc-Nvgyfg-Hxbtob Hx Past Med/Social Hx: Reviewed Nursing Past Med/Soc Hx Patient Social History Alcohol Use: Denies Use Recreational Drug Use: No Smoking Status: Never a Smoker Recent Foreign Travel: No Contact w/Someone Who Travel: No Recent Infectious Disease Expo: No Recent Hopitalizations: No Immunizations Up To Date Date of Influenza Vaccine: Nov 30, 2011 Seasonal Allergies Seasonal Allergies: Yes Past Medical History Surgeries: Yes Adenoidectomy, Hysterectomy, Tonsillectomy Respiratory: No Cardiac: Yes High Cholesterol, Hypertension Neurological: No : No Reproductive Disorders: No Gastrointestinal: No Musculoskeletal: No Endocrine: No Cancer: No Psychosocial: No Integumentary: No Blood Disorders: No Physical Exam Vital Signs Vital Signs - First Documented Capillary Refill : Less Than 3 Seconds Height, Weight, BMI Height: 5'3.00" Weight: 175lbs. 0.0oz. 79.888647uc; 31.0 BMI Method:Stated General Appearance: No Apparent Distress, WD/WN HEENT: PERRL/EOMI, Normal ENT Inspection Neck: Normal Inspection Respiratory: Lungs Clear, Normal Breath Sounds, No Accessory Muscle Use, No Respiratory Distress Cardiovascular: Regular Rate, Rhythm, No Edema, No Murmur Gastrointestinal: Normal Bowel Sounds, Non Tender, Soft Extremity: Normal Inspection, Non Tender, No Calf Tenderness, No Pedal Edema, Other (negative Lalit) Neurologic/Psychiatric: Alert, Oriented x3, No Motor/Sensory Deficits, Normal Mood/Affect, salesforce consultant II-XII Norm as Tested Skin: Normal Color, Warm/Dry Progress/Results/Core Measures Results/Orders Lab Results Laboratory Tests Test 08/16/18 22:27 08/17/18 00:40 Range/Units White Blood Count 11.3 H 4.3-11.0 10^3/uL Red Blood Count 4.07 L 4.35-5.85 10^6/uL Hemoglobin 12.6 11.5-16.0 G/DL Hematocrit 37 35-52 % Mean Corpuscular Volume 91 80-99 FL Mean Corpuscular Hemoglobin 31 25-34 PG Mean Corpuscular Hemoglobin Concent 34 32-36 G/DL Red Cell Distribution Width 13.1 10.0-14.5 % Platelet Count 223 130-400 10^3/uL Mean Platelet Volume 10.4 7.4-10.4 FL Neutrophils (%) (Auto) 69 42-75 % Lymphocytes (%) (Auto) 24 12-44 % Monocytes (%) (Auto) 7 0-12 % Eosinophils (%) (Auto) 0 0-10 % Basophils (%) (Auto) 0 0-10 % Neutrophils # (Auto) 7.8 1.8-7.8 X 10^3 Lymphocytes # (Auto) 2.7 1.0-4.0 X 10^3 Monocytes # (Auto) 0.8 0.0-1.0 X 10^3 Eosinophils # (Auto) 0.0 0.0-0.3 10^3/uL Basophils # (Auto) 0.0 0.0-0.1 10^3/uL Prothrombin Time 12.0 L 12.2-14.7 SEC INR Comment 0.9 0.8-1.4 Activated Partial Thromboplast Time 27 24-35 SEC D-Dimer 0.42 0.00-0.49 UG/ML Sodium Level 141 135-145 MMOL/L Potassium Level 3.7 3.6-5.0 MMOL/L Chloride Level 109 H 98-107 MMOL/L Carbon Dioxide Level 19 L 21-32 MMOL/L Anion Gap 13 5-14 MMOL/L Blood Urea Nitrogen 22 H 7-18 MG/DL Creatinine 1.03 0.60-1.30 MG/DL Estimat Glomerular Filtration Rate 53 BUN/Creatinine Ratio 21 Glucose Level 111 H 70-105 MG/DL Calcium Level 9.3 8.5-10.1 MG/DL Corrected Calcium 9.1 8.5-10.1 MG/DL Magnesium Level 2.0 1.8-2.4 MG/DL Total Bilirubin 0.4 0.1-1.0 MG/DL Aspartate Amino Transf (AST/SGOT) 38 H 5-34 U/L Alanine Aminotransferase (ALT/SGPT) 48 0-55 U/L Alkaline Phosphatase 69 40-136 U/L Myoglobin 73.8 10.0-92.0 NG/ML Troponin I 0.049 H 0.218 H <0.028 NG/ML B-Type Natriuretic Peptide 18.1 <100.0 PG/ML Total Protein 6.7 6.4-8.2 GM/DL Albumin 4.2 3.2-4.5 GM/DL My Orders Orders - CALISTA FISH MD Fibrin Degradation Products (08/16/18 22:17) Ns Iv 1000 Ml (Sodium Chloride 0.9%) (08/16/18 22:18) Nitroglycerin 0.4 Mg Btl 25's (Nitrostat (08/16/18 22:30) Nitroglycerin 0.4 Mg Btl 25's (Nitrostat (08/16/18 22:15) Ns Iv 1000 Ml (Sodium Chloride 0.9%) (08/16/18 22:15) Albuterol Pre-Mix Nebs (Rt) (Proventil (08/17/18 00:30) Albuterol/Ipra Inhalation Soln (Duoneb I (08/17/18 00:30) Svn Small Volume Nebulizer (08/17/18 00:30) Svn Small Volume Nebulizer (08/17/18 00:30) Troponin I (08/17/18 00:40) Vital Signs/I&O 08/16/18 08/16/18 08/16/18 22:02 22:02 22:05 Temp 96.9 Pulse 103 Resp 20 B/P (MAP) 149/85 (106) Pulse Ox 98 98 O2 Delivery Room Air Room Air Room Air Blood Pressure Mean: 106 Progress Progress Note #1: Time: 00:44 Progress Note Patient received aspirin. EKG showed sinus tachycardia with no ST elevation or depression. Troponin returned 0.049. A repeat troponin is pending. Patient did receive one dose of nitroglycerin but her chest pain had pretty well resolved prior to that. She is pain-free at this time. Progress Note #2: Time: 01:51 Progress Note Patient is pain-free at this time. Troponin increased from 0.049 to 0.218. This elevation in delta troponin was discussed with Dr. Llamas area he believes this could represent an NSTEMI and patient likely needs angiography. Unfortunately, no ICU or stepdown beds are available at [facility] at this time to recover this patient after interventions. Dr. Llamas requests patient be transferred to a facility that can provide ICU care. Patient r equested transfer to [facility]. Her admission was accepted by Dr. Lopez, financial developer. Patient's tachycardia did resolve with IV fluids. It is also worth recounting that patient did note a heart rate of 201 on her watch in the evening. It is possible she had an arrhythmia straining the heart and causing elevated troponin. No arrhythmias have been noted in the emergency room. Initial ECG Impression Date: Aug 16, 2018 Initial ECG Impression Time: 22:06 Initial ECG Rate: 104 Initial ECG Rhythm: S.Tach Comment Sinus tachycardia with no ST elevation or depression. No abnormal intervals or axis deviation. Multiple PVCs noted. Diagnostic Imaging Diagonstic Imaging: Xray Plain Films/CT/US/NM/MRI: chest Comments Chest x-ray was viewed by me and report not yet available. No acute abnormalities were appreciated. Departure Impression Primary Impression: Chest pain Qualified Codes: R07.9 - Chest pain, unspecified Additional Impression: Elevated troponin Disposition: 02 XFER SHT-TRM HOSP Condition: Stable Transfer Time Spoke to Accepting Phy: 01:45 Transfer Progress Notes Transfer accepted by Dr. Lopez. Transfer Time: 02:47 Transfer Facility: [facility] Method of Transfer: EMS Departure-Patient Inst. Referrals: CHENTE ARAIZA MD (PCP/Family) Primary Care Physician Copy Copies To 1: CHENTE ARAIZA MD, JOSHUA T MD Aug 16, 2018 22:26
[2018-08-16] MEDS ORDERED: NITROGLYCERIN 0.4 MG SL TABS BTL 25'S SL PRN (22:30)
[2018-08-17 00:27] LABS: INR 0.9 (0.8-1.4)
[2018-08-17 00:28] LABS: HEMATOCRIT 37 % (35-52); HEMOGLOBIN 12.6 G/DL (11.5-16.0); MEAN CORPUSCULAR HEMOGLOBIN 31 PG (25-34); WHITE BLOOD COUNT 11.3 10^3/uL (4.3-11.0)
[2018-08-17 00:29] LABS: BASOPHILS % (AUTO) 0 % (0-10); EOSINOPHILS % (AUTO) 0 % (0-10); LYMPHOCYTES # (AUTO) 2.7 X 10^3 (1.0-4.0); LYMPHOCYTES % (AUTO) 24 % (12-44); MEAN CORPUSCULAR HGB CONC 34 G/DL (32-36); MEAN CORPUSCULAR VOLUME 91 FL (80-99); MEAN PLATELET VOLUME 10.4 FL (7.4-10.4); MONOCYTES # (AUTO) 0.8 X 10^3 (0.0-1.0); MONOCYTES % (AUTO) 7 % (0-12); NEUTROPHILS # (AUTO) 7.8 X 10^3 (1.8-7.8); NEUTROPHILS % (AUTO) 69 % (42-75); PLATELET COUNT 223 10^3/uL (130-400); RED CELL DISTRIBUTION WIDTH 13.1 % (10.0-14.5)
[2018-08-17 00:30] LABS: ALBUMIN 4.2 GM/DL (3.2-4.5); BILIRUBIN,TOTAL 0.4 MG/DL (0.1-1.0); CALCIUM 9.3 MG/DL (8.5-10.1); CREATININE SERUM 1.03 MG/DL (0.60-1.30); POTASSIUM 3.7 MMOL/L (3.6-5.0); TOTAL PROTEIN 6.7 GM/DL (6.4-8.2)
[2018-08-17] MEDS ORDERED: RT-ALBUTEROL SULF 2.5 MG/3 ML PRE-MIX VIAL INH STA (00:30)
[2018-08-17] MEDS ORDERED: RT-ALBUTEROL/IPRATROPIUM 3 ML (DUONEB) VIAL INH ONE (00:30)
[2018-08-17 02:47] VITALS: BP 131/66
--- NOTE | 2018-08-17 07:43 | Diagnostic Imaging Report ---
INDICATION: Chest pain FINDINGS: The lungs are clear. The heart size within normal limits. There is no vascular congestion, edema, pneumonia, effusion or pneumothorax. No free air beneath the diaphragms. IMPRESSION: Unremarkable frontal chest. Dictated by: Dictated on workstation # [id number]
== END 2018-08-17 02:47 | disposition short-term general hospital (02) ==
LOC: EDUNIT# 22:02 → ER 22:03
DX: R07.89 Other chest pain (principal); R74.8 Abnormal levels of other serum enzymes; I10 Essential (primary) hypertension; E78.00 Pure hypercholesterolemia, unspecified; Z88.0 Allergy status to penicillin; Z79.82 Long term (current) use of aspirin; Z90.89 Acquired absence of other organs; Z90.710 Acquired absence of both cervix and uterus
CPT/HCPCS: 36415; 71045; 80053; 83735; 83874; 83880; 84484; 85025; 85379; 85610; 85730; 93005; 93041; 96360

== ENCOUNTER → 2019-07-11 | Outpatient (CLI) | payer MEDICARE, OTHER ==
[~2019-07-11] MED LIST changes: -MONT10TA24 PO; +MONT10TA26 PO; -OMEP20CA12; +OMEP20CA18; +ZINC50TA11 PO; -ZINC50TA4 PO
--- NOTE | 2019-07-11 11:42 | Diagnostic Imaging Report ---
INDICATION: Routine screening. Comparison is made with prior mammogram from 04/28/2018 and 04/26/2017. 2-D and 3-D bilateral screening mammography was performed with CAD. Scattered fibroglandular densities are identified bilaterally. Slightly nodular density outer aspect of the right breast mid depth appears stable. Benign calcifications are noted. No new mass or malignant appearing microcalcifications are seen. Axillae are unremarkable. IMPRESSION: BI-RADS Category 2 No mammographic features suspicious for malignancy are identified. ACR BI-RADS Category 2: Benign findings. Result letter will be mailed to the patient. Note: At least 10% of breast cancer is not imaged by mammography. Dictated by: Dictated on workstation # [id number]
== END ==
LOC: RAD 10:22
PROVIDERS: ATTEND Family Medicine
DX: Z12.31 Encounter for screening mammogram for malignant neoplasm of breast (principal)
CPT/HCPCS: 77063; 77067

== ENCOUNTER → 2020-07-22 | Outpatient (CLI) | payer MEDICARE, OTHER ==
[~2020-07-22] MED LIST changes: +ASCO100024 PO; -ASCO10006 PO; -LISI-556 PO; +LISI-729 PO; -MONT10TA26 PO; +MONT10TA32 PO
--- NOTE | 2020-07-22 16:15 | Diagnostic Imaging Report ---
INDICATION: Postmenopausal state COMPARISON: 03/02/2013 FINDINGS: AP Spine L1-L4: [BMD (g/cm2): 1.233] [T-Score: 0.3] [Z-Score: 1.4] [BMD Previous: 1.295] [BMD % Change: -4.8] LT Hip Neck: [BMD (g/cm2): 0.955] [T-Score: -0.6] [Z-Score: 0.9] LT Hip Total: [BMD (g/cm2):1.043] [T-Score:0.3] [Z-Score: 1.5] [BMD Previous: 1.049] [BMD % Change: -0.6] RT Hip Neck: [BMD (g/cm2):0.858] [T-Score:-1.3] [Z-Score:0.2] RT Hip Total: [BMD (g/cm2):0.985] [T-score:-0.2] [Z-Score:1.1] [BMD Previous:1.025] [BMD % Change:2.1] *Indicates significant change from prior examination based on 95% confidence level. World Health Organization criteria for BMD interpretation classify patients as Normal (T-score at or above -1.0), Osteopenic (T-score between -1.0 and -2.5) or Osteoporotic (T-score at or below -2.5). LIMITATIONS AND MODIFICATION: None. FRACTURE RISK (FRAX SCORE): The ten year probability of (%): Major Osteoporotic Fracture: [9.8] Hip Fracture: [1.5] IMPRESSION: 1. Osteopenia (Low bone mass). 2. No significant change in bone mineral density since prior examination. 3. See below National Osteoporosis Foundation guidelines on when to potentially initiate pharmacologic therapy. Based on the National Osteoporosis Foundation Guidelines, pharmacologic treatment should be initiated in any of the following, unless clinical conditions suggest otherwise: * Any patient with prior fragility fracture of the hip or vertebrae. A spine fracture indicates 5X risk for subsequent spine fracture and 2X risk for subsequent hip fracture. * Osteoporosis (T-score <-2.5). * Postmenopausal women and men age 50 and older with low bone mass/osteopenia (T-score between -1.0 and -2.5) by DXA and 10-year major osteoporotic fracture greater than 20% or a 10-year probability of hip fracture greater than 3%. These fracture risks are supplied above in the FRAX score, if applicable. * Clinician judgement and/or patient preferences may indicate treatment for people with 10-year fracture probabilities above or below these levels. Dictated by: Dictated on workstation # [id number]
--- NOTE | 2020-07-22 20:03 | Diagnostic Imaging Report ---
INDICATION: Routine screening. COMPARISON is made with prior mammograms 07/11/2019 and 04/28/2018. 2-D and 3-D bilateral screening mammography was performed with CAD. Scattered fibroglandular densities are identified bilaterally. The benign nodule in the outer right breast appears stable. There are benign calcifications present. No spiculated mass or malignant appearing microcalcifications are seen. The axillae are unremarkable. IMPRESSION: BI-RADS Category 2 No mammographic features suspicious for malignancy are identified. Dictated by: Dictated on workstation # [id number]
== END ==
LOC: RAD 14:00
PROVIDERS: ATTEND Family Medicine
DX: Z12.31 Encounter for screening mammogram for malignant neoplasm of breast (principal); M85.80 Other specified disorders of bone density and structure, unspecified site; Z78.0 Asymptomatic menopausal state
CPT/HCPCS: 77063; 77067; 77080

== ENCOUNTER → 2021-01-16 | Outpatient (CLI) | payer MEDICARE, OTHER ==
[~2021-01-16] MED LIST changes: -LISI-729 PO; +LISI5TAB20 PO; +MONT-40 PO; -MONT10TA32 PO
[2021-01-16 08:59] LABS: BASOPHILS % (AUTO) 0 % (0-10); EOSINOPHILS # (AUTO) 0.1 10^3/uL (0.0-0.3); EOSINOPHILS % (AUTO) 2 % (0-10); HEMATOCRIT 37 % (35-52); HEMOGLOBIN 12.4 g/dL (11.5-16.0); LYMPHOCYTES # (AUTO) 2.2 10^3/uL (1.0-4.0); LYMPHOCYTES % (AUTO) 33 % (12-44); MEAN CORPUSCULAR HEMOGLOBIN 31 pg (25-34); MEAN CORPUSCULAR HGB CONC 33 g/dL (32-36); MEAN CORPUSCULAR VOLUME 94 fL (80-99); MEAN PLATELET VOLUME 10.6 fL (9.0-12.2); MONOCYTES # (AUTO) 0.4 10^3/uL (0.0-1.0); MONOCYTES % (AUTO) 6 % (0-12); NEUTROPHILS % (AUTO) 59 % (42-75); PLATELET COUNT 248 10^3/uL (130-400); WHITE BLOOD COUNT 6.7 10^3/uL (4.3-11.0)
[2021-01-16 09:38] LABS: ALBUMIN 3.9 GM/DL (3.2-4.5); BILIRUBIN,TOTAL 0.6 MG/DL (0.1-1.0); CALCIUM 8.8 MG/DL (8.5-10.1); CREATININE SERUM 0.8 MG/DL (0.60-1.30); POTASSIUM 3.9 MMOL/L (3.6-5.0); TOTAL PROTEIN 6.6 GM/DL (6.4-8.2)
== END ==
LOC: LAB 08:25
PROVIDERS: ATTEND Nurse Practitioner Family
DX: E78.2 Mixed hyperlipidemia (principal); I10 Essential (primary) hypertension
CPT/HCPCS: 36415; 80053; 80061; 84443; 85025

== ENCOUNTER → 2021-09-11 | Outpatient (CLI) | payer MEDICARE, OTHER ==
--- NOTE | 2021-09-11 11:42 | Diagnostic Imaging Report ---
INDICATION: Routine screening. COMPARISON is made with prior mammograms 07/22/2020 and 07/11/2019. 2-D and 3-D bilateral screening mammography was performed with CAD. Scattered fibroglandular densities are identified bilaterally. The nodular densities in the outer right breast appear slightly more prominent on today's study. Additional views are recommended for further evaluation. The left breast is stable. There are benign consultations. No malignant-appearing microcalcifications are seen. Axillae are unremarkable. IMPRESSION: BI-RADS Category 0 Right breast nodular densities. Additional views are recommended for further evaluation. ACR BI-RADS Category 0: Incomplete. (Needs additional imaging evaluation). Result letter will be mailed to the patient. Note: At least 10% of breast cancer is not imaged by mammography. Dictated by: Dictated on workstation # [id number]
== END ==
LOC: RAD 08:17
PROVIDERS: ATTEND Nurse Practitioner Family
DX: Z12.31 Encounter for screening mammogram for malignant neoplasm of breast (principal)
CPT/HCPCS: 77063; 77067

== ENCOUNTER → 2021-09-17 | Outpatient (CLI) | payer MEDICARE, OTHER ==
--- NOTE | 2021-09-17 12:03 | Diagnostic Imaging Report ---
Ultrasound right breast INDICATION: Abnormal mammogram The screening mammogram performed on 09/11/2021 noted nodular densities in the lateral aspect of the right breast. The diagnostic mammogram performed prior to this study suggested that the nodular densities persist although they had a generally benign appearance. On this exam, there is a small collection of cysts and ducts in the area of concern. There is no internal vascularity associated with these findings and I suspect that these small cysts/ducts are benign. Even so, it may prove worthwhile to have a short-term (6 month) follow-up mammogram and ultrasound exam for further study. IMPRESSION: There are a few small benign-appearing cysts/ducts corresponding to the findings of the screening mammogram. There is no solid mass to suggest malignancy. Recommendations as above. ACR BI-RADS Category 3: Probably benign findings. Result letter will be mailed to the patient. Note: At least 10% of breast cancer is not imaged by mammography. Dictated by: Dictated on workstation # [id number]
--- NOTE | 2021-09-17 16:49 | Diagnostic Imaging Report ---
3-D interval diagnostic mammogram with CAD. Indication: Abnormal screening mammogram The recent screening mammogram performed on 09/11/2021 noted small nodular densities in the lateral aspect of the right breast. These did seem more prominent than on the previous exam of 07/22/2020. On the compression views of these nodular densities, these findings seem to have a generally benign appearance. Even so, I would recommend ultrasound be performed to better characterize these findings. Impression: Ultrasound would be recommended for further evaluation of the nodular densities in the lateral aspect of the right breast. ACR BI-RADS Category 0: Incomplete. (Needs additional imaging evaluation). Result letter will be mailed to the patient. Note: At least 10% of breast cancer is not imaged by mammography. Dictated by: Dictated on workstation # [id number]
== END ==
LOC: RAD 09:40
PROVIDERS: ATTEND Nurse Practitioner Family
DX: N63.10 Unspecified lump in the right breast, unspecified quadrant (principal)
CPT/HCPCS: 76642; 77065; G0279

== ENCOUNTER → 2022-03-24 | Outpatient (CLI) | payer MEDICARE, OTHER ==
--- NOTE | 2022-03-24 14:50 | Diagnostic Imaging Report ---
Indication: Six-month follow-up right breast densities. Correlation is made with prior mammogram from 09/11/2021 07/22/2020. Unilateral right 2-D and 3-D diagnostic mammography was performed with CAD. CAD is utilized. The current study was also evaluated with a Computer Aided Detection (CAD) system. Scattered fibroglandular densities in the right breast are noted. Nodular densities in the outer right breast appears stable. No new mass or malignant-appearing microcalcifications are seen. Right axilla is unremarkable. IMPRESSION: BI-RADS 0 Stable nodular densities in the outer right breast when compared with prior exam 6 month earlier. Even so, sonographic interrogation of this area is recommended and will be performed today. ACR BI-RADS Category 0: Incomplete. (Needs additional imaging evaluation). Result letter will be mailed to the patient. Note: At least 10% of breast cancer is not imaged by mammography. Dictated by: Dictated on workstation # [id number]
--- NOTE | 2022-03-24 14:53 | Diagnostic Imaging Report ---
Indication: Six-month follow-up of right breast nodule. Correlation is made with prior ultrasound from 09/17/2021. Sonographic interrogation 8:00 location right breast, 6 to 7 cm from the nipple was performed. Previously noted cystic structures with some internal debris appears stable measuring 10 mm x 4 mm x 3 mm. No internal vascularity is seen. These likely represent small complex cysts are slightly dilated ducts. No new abnormality is seen. IMPRESSION: BI-RADS Category 2 Stable right breast ultrasound again demonstrating either slightly complex cysts or slightly dilated ducts at the 8:00 location, 6-7 cm from the nipple. Patient may return to routine annual screening mammography. ACR BI-RADS Category 2: Benign findings. Dictated by: Dictated on workstation # [id number]
== END ==
LOC: RAD 12:19
PROVIDERS: ATTEND Family Medicine
DX: N63.10 Unspecified lump in the right breast, unspecified quadrant (principal); R92.2 Inconclusive mammogram
CPT/HCPCS: 76642; 77065; G0279

== ENCOUNTER → 2022-09-14 | Outpatient (CLI) | payer MEDICARE, OTHER ==
--- NOTE | 2022-09-14 15:20 | Diagnostic Imaging Report ---
EXAMINATION: 3D bilateral screening mammogram with CAD. INDICATION: Screening. COMPARISON: This study was compared to the prior exams of 03/24/2022, 09/12/2019, and 08/10/2020. PERSONAL HISTORY: At this time, there are no current complaints. FINDINGS: The breasts are predominantly fatty. The small nodular densities in the lateral aspect of the right breast seen previously do not appear to have changed significantly. The ultrasound exam of 03/24/2022 suggested that these were slightly complicated cysts or slightly dilated ducts. The overall appearance of the breasts is otherwise stable. There is no primary or secondary sign of malignancy noted. IMPRESSION: There is no evidence for malignancy. ACR BI-RADS Category 2: Benign findings. Result letter will be mailed to the patient. Note: At least 10% of breast cancer is not imaged by mammography. Dictated by: Dictated on workstation # [id number]
== END ==
LOC: RAD 12:41
PROVIDERS: ATTEND Family Medicine
DX: Z12.31 Encounter for screening mammogram for malignant neoplasm of breast (principal)
CPT/HCPCS: 77063; 77067